=== PATIENT | male | born 1960 | race Caucasian/White ===

== ENCOUNTER 2019-09-30 18:25 | Observation (INO) | payer OTHER ==
--- NOTE | 2019-09-30 19:22 | ER Document Report ---
ED Medical Screen (RME) - General Chief Complaint: Hand Injury Stated Complaint: HAND INJURY Time Seen by Provider: 09/30/19 19:20 Primary Care Provider: SHELL MANN MD [Primary Care Provider] - Follow up as needed Information source: Patient Notes: This 58-year-old male with a history of Dupuytren's contracture to the left hand. Started having trouble with the right hand at the fifth digit he felt that he was probably having another contracture he does have an orthopedist appointment this week however it appears that the entire hand is rather warm tender swollen and there looks to be an abscess or something medially at the base of the MCP I greeted and performed a rapid initial assessment of this patient. Comprehensive ED assessment and evaluation of the patient, analysis of test results and completion of the medical decision making process will be conducted by additional ED providers. TRAVEL OUTSIDE OF THE [place] IN LAST 30 DAYS: No - HPI Patient complains to provider of: Right hand pain and swelling Onset: Just prior to arrival Onset/Duration: Intermittent Quality of pain: No pain, Achy Pain Level: 2 Associated Symptoms: None Exacerbated by: Denies Relieved by: Denies Similar symptoms previously: No Recently seen / treated by doctor: No Past Medical History - General Information source: Patient - Social History Cigarette use (# per day): No Frequency of alcohol use: None Drug Abuse: None Lives with: Family Physical Exam - Vital signs Vitals: Temp Pulse Resp BP Pulse Ox 99.0 F 73 16 145/81 H 97 09/30/19 18:29 09/30/19 18:29 09/30/19 18:29 09/30/19 18:29 09/30/19 18:29 Course - Vital Signs Vital signs: Temp Pulse Resp BP Pulse Ox 99.0 F 73 16 145/81 H 97 09/30/19 18:29 09/30/19 18:29 09/30/19 18:29 09/30/19 18:29 09/30/19 18:29 Doctor's Discharge - Discharge Referrals: SHELL MANN MD [Primary Care Provider] - Follow up as needed
--- NOTE | 2019-09-30 19:46 | RADIOLOGY REPORT (SQ) ---
EXAM DESCRIPTION: HAND RIGHT 3 VIEWS IMAGES COMPLETED DATE/TIME: 09/30/2019 7:39 pm REASON FOR STUDY: pain COMPARISON: None. EXAM PARAMETERS: NUMBER OF VIEWS: Three views. TECHNIQUE: AP, lateral and oblique radiographic images acquired of the right hand. LIMITATIONS: None. FINDINGS: MINERALIZATION: Normal. BONES: No acute fracture or dislocation. No worrisome bone lesions. JOINTS: No effusions. SOFT TISSUES: No soft tissue swelling. No foreign body. OTHER: No other significant finding. IMPRESSION: NEGATIVE STUDY OF THE RIGHT HAND. NO RADIOGRAPHIC EVIDENCE OF ACUTE INJURY. TECHNICAL DOCUMENTATION: JOB ID: [id number] 2010 [employer]- All Rights Reserved Reading location - IP/workstation name: [email or web address]
[2019-09-30 20:03] LABS: ABSOLUTE BASOPHILS # (AUTO) 0.1 10^3/uL (0.0-0.2); ABSOLUTE EOSINOPHILS # (AUTO) 0.1 10^3/uL (0.0-0.6); ABSOLUTE LYMPHOCYTES (AUTO) 1.2 10^3/uL (0.5-4.7); ABSOLUTE MONOCYTES (AUTO) 0.8 10^3/uL (0.1-1.4); BASOPHILS % (AUTO) 0.5 % (0-2); EOSINOPHILS % (AUTO) 1.1 % (0-6); HEMATOCRIT 39.8 % (37.9-51.0); HEMOGLOBIN 13.7 g/dL (13.5-17.0); MEAN CORPUSCULAR HEMOGLOBIN 29.6 pg (27.0-33.4); MEAN CORPUSCULAR HGB CONC 34.5 g/dL (32.0-36.0); MEAN CORPUSCULAR VOLUME 86 fl (80-97); MONOCYTES % (AUTO) 6.7 % (3-13); PLATELET COUNT 215 10^3/uL (150-450); RED BLOOD COUNT 4.64 10^6/uL (4.35-5.55); RED CELL DISTRIBUTION WIDTH 12.4 % (11.5-14.0); SEGMENTED NEUTROPHILS % (AUTO) 81.7 % (42-78); TOTAL CELLS COUNTED % (AUTO) 100 %; WHITE BLOOD COUNT 12.2 10^3/uL (4.0-10.5)
[2019-09-30 20:23] LABS: ALBUMIN 3.8 g/dL (3.5-5.0); ALKALINE PHOSPHATASE 106 U/L (38-126); ANION GAP 6 (5-19); ASPARTATE AMINO TRANSFERASE 19 U/L (17-59); BILIRUBIN,TOTAL 0.8 mg/dL (0.2-1.3); BLOOD UREA NITROGEN 24 mg/dL (7-20); CALCIUM 9.1 mg/dL (8.4-10.2); CARBON DIOXIDE 26 mmol/L (22-30); CHLORIDE 106 mmol/L (98-107); GLUCOSE 98 mg/dL (75-110); POTASSIUM 3.9 mmol/L (3.6-5.0)
[2019-09-30] MEDS ORDERED: ACETAMINOPHEN 325 MG TABLET PO ONE (20:40)
--- NOTE | 2019-09-30 20:47 | ER Document Report ---
ED Hand/Wrist Injury - General Chief Complaint: Hand Swelling Stated Complaint: HAND INJURY Time Seen by Provider: 09/30/19 19:20 Notes: 58-year-old male rigth handed male with a hx of dupuytren contracture and htn presenting today with swelling, redness, tenderness along the base of the fifth MCP joint of his right hand starting Thursday. He also notes swelling and tendnerness along the back of his right hand. He has a nodule at the base of the fifth finger. He denies any pain or tenderness along the finger and no passive pain with finger flexion. He reports mild tingling in his whole hand. Has been taking ibuprofen and Tylenol which helps to alleviate the pain but does not take it away completely. Last dose of ibuprofen was at 4:00 this afternoon. Has had chills. No fever. Surgical hx of dupuyren contracture release on left 5th finger Has a history of hypertension for which he takes lisinopril 10 mg. No headaches, chills , nausea ,vomiting or additional symptoms reported. PCM is Dr. Rolon. States he does have an appointment with Ortho on Thursday but he was unable to tolerate the pain which brought him in today. Sees Dr. Coleman at [facility] in [facility]. TRAVEL OUTSIDE OF THE [place] IN LAST 30 DAYS: No - Related Data Allergies/Adverse Reactions: No Known Allergies Allergy (Unverified 09/30/19 19:22) Home Medications: Lisinopril 10mg Past Medical History - General Information source: Patient - Social History Smoking Status: Never Smoker Cigarette use (# per day): No Frequency of alcohol use: None Drug Abuse: None Lives with: Family Family History: Reviewed & Not Pertinent Patient has homicidal ideation: No - Past Medical History Cardiac Medical History: Reports: Hx Hypertension Denies: Hx Pulmonary Embolism, Hx Heart Murmur Pulmonary Medical History: Reports: None EENT Medical History: Reports: None Neurological Medical History: Reports: None Endocrine Medical History: Reports: None Renal/ Medical History: Reports: None GI Medical History: Reports: None Other: dupuytren's contracture Past Surgical History: Reports: Hx Orthopedic Surgery - L hand Review of Systems - Review of Systems Constitutional: See HPI EENT: No symptoms reported Cardiovascular: No symptoms reported Respiratory: No symptoms reported Gastrointestinal: No symptoms reported Musculoskeletal: See HPI Physical Exam - Vital signs Vitals: Temp Pulse Resp BP Pulse Ox 99.0 F 73 16 145/81 H 97 09/30/19 18:29 09/30/19 18:29 09/30/19 18:29 09/30/19 18:29 09/30/19 18:29 Interpretation: No: Hypotensive, Bradycardic, Tachycardic, Tachypneic, Febrile - Notes Notes: Adult General: GENERAL: Alert, interacts well. No acute distress HEAD: Normocephalic, atraumatic EYES: Extraocular movements intact. ENT: Airway patent. Nares patent NECK: Full range of motion. Supple. Trachea midline. No lymphadenopathy. GENITOURINARY: Deferred EXTREMITIES: right hand tenderness at base at fifth mcp joint with associated mass and nodule, tenderness, erythema. volar aspect of hand is swollen and tender. No pain with passive movement. Neurovascularly intact. BACK: Moves all extremities with full range of motion. NEUROLOGICAL: Alert and oriented x3. Normal speech. PSYCH: Normal affect, normal mood. SKIN: See extremity Course - Re-evaluation Re-evalutation: X-ray of right hand shows no abnormal findings. Ultrasound of right hand shows fluid collection about the volar aspect of the hand of the fifth MCP head and most likely soft tissue cellulitis with abscess. Patient does have a white count of 12.2. He is currently afebrile in the emergency department but recently took ibuprofen approximately at 4 PM. As patient has had chills, pain that is moderately controlled with ibuprofen, and worsening swelling of his dominant hand with possible soft tissue cellulitis with abscess feel that patient should be admitted. Started patient on Vanco and Rocephin. Called Dr. Berrios application operations engineer Orthopedic who agrees to admit the patient and says he will see him in the morning. Patient informed of plan. He is in agreement with plan. 10/01/19 04:06 - Vital Signs Vital signs: Temp Pulse Resp BP Pulse Ox 98.2 F 54 L 18 136/94 H 100 10/01/19 01:33 10/01/19 01:22 10/01/19 01:22 10/01/19 01:22 10/01/19 01:22 - Laboratory Result Diagrams: 09/30/19 19:47 09/30/19 19:47 Laboratory results interpreted by me: 09/30/19 09/30/19 19:47 19:47 WBC 12.2 H Lymph % (Auto) 10.0 L Absolute Neuts (auto) 10.0 H Seg Neutrophils % 81.7 H BUN 24 H Discharge - Discharge Clinical Impression: Cellulitis and abscess of hand Condition: Stable Disposition: ADMITTED OBSERVATION Admitting Provider: orthopedics Dr. Berrios Unit Admitted: Medical Floor
[2019-09-30] MEDS ORDERED: VANCOMYCIN HCL INJ 1000 MG VIAL IV ONE (20:53)
[2019-09-30] MEDS ORDERED: CEFTRIAXONE INJ 1000 MG VIAL IV ONE (20:53)
[2019-09-30] MEDS ORDERED: CEFTRIAXONE 1 GM/D5W RTU 1 GM/50 ML RTUPB IV ONE (21:02)
--- NOTE | 2019-09-30 22:02 | RADIOLOGY REPORT (SQ) ---
EXAM DESCRIPTION: US EXTREMITY MUSCULOSKELETAL LIMITED COMPLETED DATE/TME: 09/30/2019 20:51 CLINICAL HISTORY: 58 years, Male, right hand infection COMPARISON: None. TECHNIQUE: Axial 2-D grayscale images of the head were acquired. Doppler was utilized. LIMITATIONS: None. FINDINGS: At the site of the patient's palpable abnormality at the volar aspect of the hand at the level of the fifth metacarpal head reveals a complex hypoechoic collection with peripheral hyperemia measuring 2.7 x 1.4 x 2.0 cm in size, suspicious for an abscess. There is associated adjacent fluid interdigitating the fascial planes about the medial aspect of the hand extending into the dorsum. IMPRESSION: Complex fluid collection located about the volar aspect of the hand at the level of the fifth metacarpal head, as above described. Associated adjacent soft tissue swelling and hyperemia. Overall, findings are most likely indicative of soft tissue cellulitis with associated abscess. copyright 2010 [employer]- All Rights Reserved
[2019-09-30] MEDS ORDERED: ACETAMINOPHEN 325 MG TABLET PO PRN (23:30)
[2019-09-30] MEDS ORDERED: RINGERS SOLUTION,LACTATED 1,000 ML IV PRN (23:31)
[2019-10-01] MEDS: OXYCODONE-ACETAMINOPHEN 5-325 MG TABLET PO PRN ×3 (00:27→09:17)
[2019-10-01] MEDS ORDERED: DEXTROSE 50%-WATER 25 GM/50 ML DISP.SYRIN IV PRN ×2 (04:36)
[2019-10-01] MEDS ORDERED: GLUCAGON,HUMAN RECOMB 1 MG INJ SUBCUT PRN (04:36)
[2019-10-01] MEDS ORDERED: DEXTROSE 40% GEL 15 GM TUBE PO PRN ×2 (04:36)
--- NOTE | 2019-10-01 09:49 | PDOC H&P ---
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 He does not recall a specific injury to his right hand. He presents with a several day history of worsening pain, swelling, and erythema in his right hand. He had made an appointment to see his own orthopedic hand surgeon for Thursday but was unable to tolerate the worsening pain and presented to the emergency room last evening. He does reports fevers and chills. Past Medical History Cardiac Medical History: Reports: Hypertension Denies: Pulmonary Embolism, Heart Murmur Pulmonary Medical History: Reports: None EENT Medical History: Reports: None Neurological Medical History: Reports: None Endocrine Medical History: Reports: None Renal/ Medical History: Reports: None GI Medical History: Reports: None Psychiatric Medical History: Denies: Depression Past Surgical History Past Surgical History: Reports: Orthopedic Surgery - L hand Dupuytren's fasciectomy Social History Lives with: Family Smoking Status: Never Smoker Family History Family History: Reviewed & Not Pertinent Parental Family History Reviewed: Yes Children Family History Reviewed: No Sibling(s) Family History Reviewed.: No Medication/Allergy Home Medications: Lisinopril [Prinivil 10 mg Tablet] 10/01/19 Allergies/Adverse Reactions: No Known Allergies Allergy (Unverified 09/30/19 19:22) Review of Systems All systems: reviewed and no additional remarkable complaints except as stated - As per HPI Physical Exam Vital Signs: Temp Pulse Resp BP Pulse Ox 98.0 F 56 L 17 135/76 H 100 10/01/19 07:29 10/01/19 07:29 10/01/19 07:29 10/01/19 07:29 10/01/19 07:29 Intake & Output 09/30/19 10/01/19 10/02/19 06:59 06:59 06:59 Weight 85.2 kg General appearance: PRESENT: no acute distress, well-developed, well-nourished Head exam: PRESENT: atraumatic, normocephalic Eye exam: PRESENT: conjunctiva pink, EOMI, PERRLA. ABSENT: scleral icterus Mouth exam: PRESENT: moist, tongue midline Neck exam: ABSENT: carotid bruit, JVD, lymphadenopathy, thyromegaly Respiratory exam: PRESENT: clear to auscultation seda. ABSENT: rales, rhonchi, wheezes Cardiovascular exam: PRESENT: RRR. ABSENT: diastolic murmur, rubs, systolic murmur GI/Abdominal exam: PRESENT: soft Rectal exam: PRESENT: deferred Musculoskeletal exam: PRESENT: other - Examination of the right hand: There is a large fluid-filled mass in the palm of the right hand at the level of the distal palmar crease consistent with an abscess. This abscess extends from the small digits to the ring digit. There is significant hypertrophic Dupuytren's fascia with a large cord to the level of the proximal interphalangeal joint of the small finger. There is dorsal ulnar swelling of the hand. There is no swelling of the flexor tendon sheath at the level of the distal phalanx of the small finger. There is no swelling of the sheath of the ring finger. Results Laboratory Results: 09/30/19 19:47 09/30/19 19:47 09/30/19 09/30/19 19:47 19:47 WBC 12.2 H RBC 4.64 Hgb 13.7 Hct 39.8 MCV 86 MCH 29.6 MCHC 34.5 RDW 12.4 Plt Count 215 Seg Neutrophils % 81.7 H Sodium 137.6 Potassium 3.9 Chloride 106 Carbon Dioxide 26 Anion Gap 6 BUN 24 H Creatinine 0.89 Est GFR ( Amer) > 60 Glucose 98 Calcium 9.1 Total Bilirubin 0.8 AST 19 Alkaline Phosphatase 106 Total Protein 7.0 Albumin 3.8 Impressions: Hand X-Ray 09/30/19 19:23 IMPRESSION: NEGATIVE STUDY OF THE RIGHT HAND. NO RADIOGRAPHIC EVIDENCE OF ACUTE INJURY. Extremity Ultrasound 09/30/19 20:51 IMPRESSION: Complex fluid collection located about the volar aspect of the hand at the level of the fifth metacarpal head, as above described. Associated adjacent soft tissue swelling and hyperemia. Overall, findings are most likely indicative of soft tissue cellulitis with associated abscess. copyright 2010 [employer]- All Rights Reserved Assessment & Plan - Time Time Spent: 30 to 50 Minutes Anticipated discharge: Home Within: within 24 hours - Plan Summary Plan Summary: The patient presents with a several day history of worsening pain, swelling, and erythema in the palm of his right hand. Symptoms are consistent with an abscess likely from penetration with a dirty tool while constructing beehive's. I have recommended operative incision and drainage. Depending on operative findings, we have discussed admission for intravenous antibiotics versus outpatient antibiotic treatment. Risk, benefits, and alternatives were discussed with the patient. An opportunity for questions was provided. All questions were answered to his satisfaction. Patient understands the risks and wishes to proceed.
[2019-10-01] MEDS ORDERED: MORPHINE SULFATE 10 MG/ML INJ ONE (12:04)
[2019-10-01] MEDS ORDERED: MIDAZOLAM 2 MG/2 ML INJ ONE (12:04)
[2019-10-01] MEDS ORDERED: DEXAMETHASONE SOD PHOSPHATE INJ 4 MG/1 ML VIAL ONE (12:04)
[2019-10-01] MEDS ORDERED: PROPOFOL INJ 200 MG/20 ML VIAL IV ONE (12:04)
[2019-10-01] MEDS ORDERED: ONDANSETRON HCL INJ/PF 4 MG/2 ML SDV ONE (12:04)
[2019-10-01] MEDS ORDERED: FENTANYL CITRATE INJ/PF 100 MCG/2 ML AMPUL ONE (12:04)
[2019-10-01] MEDS ORDERED: FENTANYL CITRATE INJ/PF 100 MCG/2 ML AMPUL IV PRN ×3 (12:22)
[2019-10-01] MEDS ORDERED: PROMETHAZINE HCL INJ 25 MG/1 ML VIAL IV PRN ×2 (12:22)
[2019-10-01] MEDS ORDERED: MEPERIDINE HCL/PF INJ 25 MG/1 ML DISP.SYRIN IV PRN (12:22)
[2019-10-01] MEDS ORDERED: DIPHENHYDRAMINE HCL 50 MG/ML VIAL IV PRN (12:22)
[2019-10-01] MEDS ORDERED: BUPIVACAINE HCL 0.25 % INJ/PF (2.5 MG/1 ML) 30 ML VIAL ONE (12:23)
[2019-10-01] MEDS ORDERED: LIDOCAINE 1% INJ-PF (10 MG/ML) 30 ML SDV ONE (12:23)
--- NOTE | 2019-10-01 13:13 | Operative Report ---
Operative Report DATE OF SURGERY: 10/01/19 PREOPERATIVE DIAGNOSIS: Right hand abscess POSTOPERATIVE DIAGNOSIS: Right hand abscess with tissue necrosis OPERATION: Right hand incision with excisional debridement SURGEON: EMILE BOYD ANESTHESIA: GA TISSUE REMOVED OR ALTERED: Excision of necrotic skin, subcutaneous tissue, and deep tissue COMPLICATIONS: None ESTIMATED BLOOD LOSS: Minimal INTRAOPERATIVE FINDINGS: Bacterial necrosis of deep tissues in the palm of the hand PROCEDURE: Indications for procedure: The patient is a 58-year-old man who began experiencing discomfort in his right hand 4 days ago. The pain, swelling, and erythema in the hand significantly worsened. The patient presented to the emergency department last evening for pain medication because he could no longer bear the pain. Examination demonstrated a large abscess at the level of the distal palmar crease. Description of procedure: Following the induction of a general anesthetic, the patient was positioned supine on the operating room table. All bony prominences were padded. The right upper extremity was sterilely prepped with ChloraPrep and draped in standard fashion. The arm was exsanguinated with gravity elevation. A transverse incision was made over the distal palmar crease of the small finger traveling to the ring finger. As soon as the skin was opened a large amount of barb pus was expressed. The wound was deepened and cultures were taken. Copious irrigation was then performed to aid in visualization. Blunt dissection was performed to identify and protect the digital arteries and nerves. There was significant necrosis of the skin. Necrotic skin was sharply debrided. There was also significant necrosis of the deep tissues including fat and parts of the flexor sheath. Necrotic fat and sheath was sharply debrided. Once all the necrotic tissue was completely removed, additional copious irrigation was performed. The wound was packed with moistened gauze and a sterile dressing was applied. 0.25% Marcaine was injected for postoperative analgesia. A bulky sterile dressing was applied. The patient tolerated the procedure well without complication was brought recovery in stable condition. Postoperatively the patient was administered 1 g of vancomycin and 2 g of Rocep hin. He will be discharged to home on Bactrim DS. He has been instructed to perform soaks of his hand every 4 hours while awake. He will follow-up in the office later this week.
--- NOTE | 2019-10-01 13:18 | Discharge Summary ---
Discharge Summary (SDC) - Discharge Final Diagnosis: Right hand abscess Date of Surgery: 10/01/19 Condition: Good Prescriptions: Sulfamethoxazole/Trimethoprim [Bactrim Ds Tablet] 1 each PO Q12 #20 tablet Referrals: SHELL MANN MD [ASSOCIATE] - Follow up as needed EMILE BOYD MD [ACTIVE PROVISIONAL STAFF] - (contact office for f/u appointment next week) Discharge Diet: As Tolerated Respiratory Treatments at Home: Deep Breathing/Coughing Discharge Activity: Activity As Tolerated, Other - perform soaks to right hand for 20 minutes every 4 hours while awake. Home Care Assistance: None Needed Report the Following to Your Physician Immediately: Fever over 101 Degrees
[2019-10-01] MEDS ORDERED: OXYCODONE-ACETAMINOPHEN 5-325 MG TABLET PO PRN (14:03)
[2019-10-01] MEDS ORDERED: ONDANSETRON HCL INJ/PF 4 MG/2 ML SDV IV PRN (14:04)
[2019-10-01] MEDS ORDERED: CEFTRIAXONE 2 GM/D5W RTU 2 GM/50 ML RTUPB IV PRN (14:30)
[2019-10-01] MEDS ORDERED: VANCOMYCIN HCL 1,000 MG in DEXTROSE 5%-WATER 250 ML IV ONE (15:30)
[2019-10-01 17:09] VITALS: BP 123/79
== END 2019-10-01 18:22 | disposition home or self-care (01) ==
LOC: ER 18:25 → EH 23:14 → 4N 10-01 01:05
PROVIDERS: ADMIT Orthopaedic Surgery; ATTEND Orthopaedic Surgery
DX: L02.511 Cutaneous abscess of right hand (principal); I96 Gangrene, not elsewhere classified; M72.0 Palmar fascial fibromatosis [Dupuytren]; I10 Essential (primary) hypertension; Z79.899 Other long term (current) drug therapy; Z03.818 Encounter for observation for suspected exposure to other biological agents ruled out
CPT/HCPCS: 99285; 36415 ×2; 87040; 87070; 87205; 85025; 11042; 87635; 80053; 73130; 76882; 00400; G0378; J2250; J1100; J3010; J2270; J0696; J2405; J7060; J7120; J2704; J3370 ×2; C9803; J3490

== ENCOUNTER 2020-05-21 23:36 | Emergency (ER) | payer OTHER ==
[2020-05-22 00:10] VITALS: BP 132/89
--- NOTE | 2020-05-22 09:24 | EKG REPORT ---
SEVERITY:- BORDERLINE ECG - SINUS BRADYCARDIA PROBABLE LEFT ATRIAL ABNORMALITY BORDERLINE LEFT AXIS DEVIATION : Confirmed by: Ramón Huerta MD 22-May-2020 09:24:01
== END 2020-05-22 00:25 | disposition left against medical advice (07) ==
LOC: ER 23:36
DX: Z53.21 Procedure and treatment not carried out due to patient leaving prior to being seen by health care provider (principal)
CPT/HCPCS: 93005; 93010